=== PATIENT | female | born 1940 | race Caucasian/White ===

== ENCOUNTER 2023-09-10 13:58 | Outpatient (RCR) | payer OTHER, BC, SELFPAY ==
[2023-08-26 13:50] VITALS: BP 176/66
[2023-08-26] MEDS: INJECTAFER 265 MG IV (14:01)
[2023-08-26 14:50] VITALS: BP 149/64
[2023-08-26 15:21] VITALS: BP 166/59
[2023-09-10 14:07] VITALS: BP 145/58
[2023-09-10] MEDS: INJECTAFER 265 MG IV (14:37)
[2023-09-10 15:27] VITALS: BP 159/63
== END 2023-09-11 08:43 | disposition home or self-care (01) ==
LOC: OID 13:58
PROVIDERS: ATTENDING PHYSICIAN Specialist; FAMILY PHYSICIAN Family Medicine
DX: N18.32 Chronic kidney disease, stage 3b (principal); I48.20 Chronic atrial fibrillation, unspecified; Q60.0 Renal agenesis, unilateral; Z79.01 Long term (current) use of anticoagulants
CPT/HCPCS: 96365; J1439

== ENCOUNTER 2024-08-13 03:50 | Inpatient (IN) | payer OTHER, SELFPAY ==
[2024-08-12 23:02] VITALS: BMI 42.1
[2024-08-12 23:09] VITALS: BP 224/140
[2024-08-12 23:18] VITALS: BP 193/99
--- NOTE | 2024-08-12 23:30 | ED.GENMED ---
History of Present Illness
General
Chief Complaint: Breathing Problem
Source: patient and family (Daughter)
Time Seen by Provider: 08/12/24 23:22
History of Present Illness
History of Present Illness:
83-year-old female presents the emergency room complaining of shortness of breath. Patient began feeling unwell this morning with some 'cold-like symptoms'. She felt a tickle in her throat and began having mild cough. Symptoms continued through
the day to the point where she now feels quite short of breath. She feels much more short of breath when she lies flat. Patient has a history of atrial fibrillation but denies any previous history of heart failure. She did not check her
temperature today but did not feel she had a fever. She denies any chest pain. Patient is prescribed Xarelto for A-fib and is compliant with it.
Phy Exam
Physical Exam
Physical Exam:
General: Awake, Alert, Oriented X3. Moderate increased work of breathing
Vitals: Hypertensive
Head: Atraumatic
Eyes: Pupils equal, EOMI
Throat: Airway intact, no exudates
Neck: Trachea midline
Lungs: Crackles bilateral bases
Heart: Regular rate, no murmurs
Abd: Soft, Nontender, No pulsatile mass
Neuro: Nonfocal
Skin: Warm, dry, no rash
Extremities: pulses equal b/l, 2+ edema
Scores
Heart Failure Risk
Heart Failure Risk Score: Yes
History of Stroke or TIA: No
History of intubation for respiratory distress: No
Heart rate on ED arrival >/= 110: Yes
SaO2 <90% on arrival on room air: No
HR >/=110 during 3min walk test (or too ill to perform test): Yes
ECG has acute ischemic changes: No
Urea >/=12mmol/L (BUN 33.6mg/dL): No
Serum CO2>/=35mmol/L: No
Troponin I or T elevated to ND Level (0.4mg/dL): No
NT-proBNP >/=5,000ng/L (5,000pg/ml): No
HF Risk Score: 2
Admission Status: MEDIUM RISK 9.2% Consider observation or discharge to home with homecare & f/u visit to PCP/Air Sampler, or SNF for treatment
Course
Orders/Labs/Results
Orders:
Orders
08/12/24 23:13
EKG- Treatment ONCE
08/12/24 23:29
CR Chest Portable - 1 View Urgent
Comment:
Reason For Exam: sob
Reason Study Needs to be Portable: Unable to Transport
08/12/24 23:43
COVID-19 Antigen Urgent
Source: Nasal Swab
Complete Blood Count/With Diff Urgent
Comprehensive Metabolic Panel Urgent
NT-proBNP Urgent
Comment: ADDED
Troponin I Urgent
Influenza A+B Rapid Molecular Urgent
SUSAN Source: Nasal Swab
Specimen Description:
08/12/24 23:49
Furosemide [Lasix] 40 mg IV NOW STA
08/12/24 23:50
Nitroglycerin Ointment [Nitro-Bid] 1 inch TOPICAL NOW STA
Nitroglycerin Sublingual [Nitrostat (Sublingual)] 0.4 mg SL NOW STA
08/13/24 00:57
Add On- LAB Urgent
Tests Added?: pro-bnp
08/13/24 03:31
Admit/Transfer Patient As Directed
Co-Sign Provider:
Level of Care: Inpatient admission
Assign to:: Telemetry
Physician / Group: Hussain
Diagnosis: Acute on Chronic HF
Reason for Telemetry: Acute Heart Failure
Date to Stop Telemetry: 08/16/24
Time to Stop Telemetry: 11:00
Reason for Hospitalization: Acute on Chronic HF
Expected length of stay greater than two midnights?: Yes
ELOS- Estimated Length of Stay in days: 2
I certify the patient meets the requirements for IP care: Yes
PRN Pain Medication Management As Directed
May give lesser potent ordered pain med per pt: Yes
preference::
Protocol:: Medication orders for pain may be administered in a
manner that supports deferring to patient preference
when the pt is:
- Requesting an ordered lesser potent pain medication.
Least to most potent pain medications are defined
as: acetaminophen < NSAID < tramadol < opioids
(morphine, oxycodone, hydromorphone).
- Requesting a lesser dose of the same medication IF
ORDERED.
- Requesting a less intrusive route of administration
if both routes are prescribed by the provider (PO <
IV).
08/13/24 03:32
Code Status As Directed
Resuscitation Status: Full Code
08/13/24 04:13
Acetaminophen [Tylenol] 650 mg PO Q4HPRN PRN
Albuterol Nebs [Ventolin Nebules] 2.5 mg INH R Q4HPRN PRN
08/13/24 04:13
Echo 2D MMode Doppler [Echo 2D MMode Color/Doppler] Routine
Reason for Study: CHF
Activity As Directed
Activity Level: Ambulate
With Assistance
EKG with chest pain [ECG as needed] As Directed
ECG as needed for:: Chest Pain
I/O [Intake/ Output] As Directed
Frequency: Per unit guidelines
Records Request [Obtain Records] As Directed
Dates of Information to be Released: Most Recent
Type of Information Requested: Last Office Visit H&P
ECG/Cardiology Results
Obtain Records from: Dr. Ed Smallwood - Cardiology
Vital Signs As Directed
Frequency: Per unit guidelines
Weight As Directed
Frequency: Daily
08/13/24 05:42
Basic Metabolic Panel IN AM
Cardiovascular Evaluation IN AM
Glycohemoglobin (HgbA1c) Routine
Iron Routine
TSH Reflex To Free T4 Routine
Total Iron Binding Routine
Troponin I Q6H
08/13/24 05:43
Complete Blood Count/No Diff IN AM
08/13/24 Breakfast
Regular
At Your Request: Full Participation
Does patient need a safe tray?: No
Fluid Restriction: 1440 mL/day (48 oz)
08/13/24 08:00
Allopurinol [Zyloprim] 100 mg PO DAILY
Doxazosin Mesylate [Cardura] 4 mg PO DAILY
Famotidine [Pepcid] 10 mg PO BID
Furosemide [Lasix] 20 mg IV BID AT 0800,1600
Metoprolol Xl [Toprol Xl] 25 mg PO DAILY
08/13/24 10:18
Troponin I Q6H
08/13/24 18:00
Rivaroxaban [Xarelto] 20 mg PO QPM
08/16/24 11:00
DC Protocol for Telemetry ONCE
Abnormal Lab Results
08/12/24
23:43
RBC 3.02 L 10^6/uL
(4.20-5.40)
Hgb 9.5 L g/dL
(12.0-16.0)
Hct 28.9 L %
(37.0-47.0)
MCH 31.5 H pg
(27.0-31.0)
MCHC 32.9 L g/dL
(33.0-37.0)
MPV 12.9 H fL
(7.4-10.4)
Chloride 109 H mmol/L
(98-107)
BUN 24 H mg/dl
(7-17)
Creatinine 1.1 H mg/dL
(0.6-1.0)
Glucose 127 H mg/dl
(70-99)
08/12/24 23:43
08/12/24 23:43
Vital Signs
Initial and Last Documented VS:
Initial Vital Signs
Temp Pulse Resp BP Pulse Ox
98.6 F 90 24 224/140 92
08/12/24 23:09 08/12/24 23:09 08/12/24 23:09 08/12/24 23:09 08/12/24 23:09
Last Documented Vital Signs
Temp Pulse Resp BP Pulse Ox
98.4 F 77 18 134/68 95
08/16/24 11:39 08/16/24 11:39 08/16/24 11:39 08/16/24 11:39 08/16/24 12:00
MDM/Problems Addressed
Differential Diagnosis Includes:
CHF, pneumonia, viral illness, symptomatic anemia
MDM/Problems Addressed:
Patient presents with shortness of breath. Clinically she appears to be heart failure. She was quite hypertensive on arrival and did receive a sublingual nitroglycerin as well as Nitropaste in addition to Lasix for diuresis. Patient blood
pressure improved significantly and continue to trend down. Symptomatically she began feeling better. She was noted to have a moderate anemia likely microcytic on CBC. White count and platelet count are normal. Chest x-ray shows pulmonary edema.
Patient will require hospitalization for further diuresis and workup.
*Radiology
Radiology exam reviewed: preliminary read by ED provider (Pulmonary edema)
*Pulse Oximetry
Patient hypoxic: yes
*EKG
Interpreted by ED Provider?: Yes
Interpretation: abnormal
Heart Rate: 92
Rate: normal
Rhythm: a-fib
[place]: normal axis
QRS Pattern: right bundle branch block
Ischemia: non-specific ST changes
*Cdl Truck Driver Interpretation
Rate: normal
Interpretation: normal
Rhythm: sinus
*Critical Care Note
Total Time (30-74mins, 75-104mins- exclusive of procedures): 41min
comment:
Critical care statement: A total of 41 minutes of critical care time was provided for this patient. This includes management of unstable vital signs, evaluation of the patient at bedside, reviewing the patient's pertinent medical records, discussion
with consultants, review of old EKGs and review of pertinent medical records. This time with separate from time utilized to perform the aforementioned documented procedures
ED Attending Note
-
Portions of this chart may have been created with voice recognition software.� Occasional wrong word or��sound alike� substitutions may have occurred due to the inherent limitations of voice recognition software.
Discharge Plan
Departure
Patient Disposition: Admit
Date of Disposition: 08/13/24
Time of Disposition: :23
Admit to: Telemetry
Presentation/result/management discussed w/ accepting MD/DO: Hospitalist
Condition: Fair
Discharge Problem:
CHF (congestive heart failure), Hypertensive emergency
Interventions
Interventions:
*Risk Screen - Suicide Last Done: 08/12/24 23:09
*General Assessment Last Done: 08/13/24 00:11
*Neglect/Abuse Screening Last Done: 08/12/24 23:09
*ED COVID-19 Vaccine History Last Done: 08/13/24 00:11
*Nursing Disposition Last Done: 08/13/24 07:47
ED- Cardiac Assessment Last Done: 08/13/24 00:27
ED- Neurological Assessment Last Done: 08/13/24 00:27
ED- Pulmonary Assessment Last Done: 08/13/24 00:27
Discharge Date and Time
Discharge Date/Time: 08/13/24 07:48
[2024-08-13] VITALS (33 sets, daily range): BP systolic 136–189; BP diastolic 52–105
[2024-08-13 00:05] LABS: % Basophils 1.4 % (0-2); % Eosinophils 3.3 % (0-6); % Immature Granulocytes 0.3 % (0-0.5); % Lymphocytes 20.5 % (20.5-51.1); % Monocytes 8.3 % (1.7-9.3); % Neutrophils 66.2 % (42.2-75.2); ALT (SGPT) 15 U/L (0-35); AST (SGOT) 17 U/L (14-36); Absolute Basophils 0.1 10^3/uL (0-0.2); Absolute Eosinophils 0.2 10^3/uL (0-0.7); Absolute Lymphocytes 1.4 10^3/uL (1.2-3.4); Absolute Monocytes 0.6 10^3/uL (0.1-0.6); Absolute Neutrophils 4.4 10^3/uL (1.4-6.5); Albumin 3.8 g/dl (3.5-5.0); Alkaline Phosphatase 69 U/L (38-126); Blood Urea Nitrogen 24 mg/dl (7-17); Calcium 9.2 mg/dl (8.4-10.2); Carbon Dioxide 25 mmol/L (22-30); Chloride 109 mmol/L (98-107); Glucose 127 mg/dl (70-99); Hematocrit 28.9 % (37.0-47.0); Hemoglobin 9.5 g/dL (12.0-16.0); Mean Corp Hgb Conc. 32.9 g/dL (33.0-37.0); Mean Corpuscular Hgb 31.5 pg (27.0-31.0); Mean Corpuscular Volume 95.7 fL (81.0-99.0); Mean Platelet Volume 12.9 fL (7.4-10.4); Nucleated Red Blood Cells % 0 %; Platelet Count 138 10^3/uL (130-400); Potassium 4.2 mmol/L (3.5-5.1); Red Blood Cell Count 3.02 10^6/uL (4.20-5.40); Red Cell Dist. Width 13.8 % (11.5-14.5); Sodium 141 mmol/L (135-145); Total Bilirubin 0.5 mg/dl (0.2-1.3); Total Protein 6.7 g/dl (6.3-8.2); White Blood Cell Count 6.6 10^3/uL (4.8-10.8); eGFR 50.48
[2024-08-13] MEDS: LASIX 40 MG IV ×2 (00:14→16:01)
[2024-08-13 00:15] LABS: COVID-19 Antigen Negative (Negative)
[2024-08-13 00:17] LABS: Troponin I < 0.012 ng/ml
[2024-08-13] MEDS: NITROSTAT (SUBLINGUAL) 0.4 MG SL (00:17)
[2024-08-13] MEDS: NITRO-BID 1 INCH TOPICAL (00:18)
[2024-08-13 01:38] LABS: NT-proBNP 1870 pg/ml
--- NOTE | 2024-08-13 03:26 | DOWNTIME ---
There was a [employer] Client Slope Hoist Operator Downtime on 08/13/2024 from 0200 to 08/14/2023 at 0318 . Downtime documentation of patient's care, including medication administrations, has been reconciled in the electronic record per guidelines. Refer to the
patient's paper chart under the miscellaneous tab to see printed paper medication records and downtime forms.
--- NOTE | 2024-08-13 03:45 | HPS.HSE ---
Family Physician
-
Family Physician: Amy Britton
Chief Complaint
-
SOB, Cough
History of Present Illness
Patient is an 83y F with PMH significant for A-Fib, CHF and history of malignancies who presents to ED complaining of cough, hoarseness and SOB. Patient states that she was feeling very well until this AM when she noted sore throat, hoarseness
and hacking cough / 'tickle' in the throat. Her symptoms seemed to progress throughout the AM. She stood up from her seat around 10AM and became acutely SOB. Her symptoms persisted throughout they day and she presented to the ED for further
evaluation and treatment.
Patient states that she has appreciated some increase in LE swelling over the past month or so.
She notes that her Lasix dose was increased (added a PRN dose) by her Tearoom Host/Hostess - however, she admits that she has not taken many of the 'as needed' dosing.
No chest pain or palpitations. No fevers / chills. No known sick contacts.
Patient is followed by Dr. Ed Smallwood at [facility].
Medical History
Past Medical History
Past Medical History: Reports Other
Additional Past Medical History:
Paroxysmal Atrial Fibrillation
CHF - Unknown Type
Hypertension
Renal Cell Cancer s/p Nephrectomy
Breast Cancer s/p Lumpectomy, Chemo and XRT
Gout
Past Surgical History: Reports Other
Additional Past Surgical History:
Left Lumpectomy
Left Nephrectomy
T&A
Ovarian Cystectomy
Social History
Tobacco: Former Smoker (Quit smoking about 60 years ago. Minimal use.)
Alcohol: None
Drug: None
Family History
Family History: Other (Father: DM)
Allergies / Home Medications
Allergies reflects when Allergies were last updated in [facility] [facility].
Home Medications with original date entered in [employer] [facility]
Allergy/Medication List:
Allergies
Allergy/AdvReac Type Severity Reaction Status Date / Time
No Known Allergies Allergy Verified 08/12/24 23:11
Home Medications
allopurinol 100 mg tablet 100 mg PO DAILY 08/26/23
doxazosin 4 mg tablet,extended release 24 hr 4 mg PO DAILY 08/26/23
furosemide 20 mg tablet 20 mg PO DAILY PRN swelling 08/26/23
metoprolol succinate 25 mg capsule sprinkle, ext. release 24 hr 25 mg PO DAILY 08/26/23
rivaroxaban 20 mg tablet (Xarelto) 20 mg PO QPM 08/26/23
famotidine 10 mg tablet 10 mg PO BID 08/13/24
Review of Systems
-
History Source: Patient
A 12 point ROS was completed and negative except as noted: Yes
Constitutional: Denies Fever, Fatigue or Chills
EENT: Reports Sore Throat
Respiratory: Reports Cough and Trouble Breathing
Cardiac: Denies Chest Pain or Palpitations
Abdomen/GI: Reports Nausea; Denies Abdominal Pain, Vomiting or Diarrhea
: Denies Dysuria, Frequency or Flank Pain
Musculoskeletal: Reports Edema; Denies Joint Pain
Neurological: Denies Dizzy or Headache
Psych: Denies Depression or Anxiety
Physical Exam
Vital Signs
Vital Signs
Temp Pulse Resp BP Pulse Ox
98.6 F 79 20 165/67 95
08/12/24 23:09 08/13/24 03:00 08/13/24 03:00 08/13/24 03:00 08/13/24 03:00
Physical Exam
General: Other (83y F in no acute distress.)
HEENT: Other (Erythematous posterior oropharynx. Thick neck. )
Respiratory: Clear; No Wheezes, Rales or Rhonchi
Cardiac: S1/S2 and Irregular Rhythm; No Murmur
GI: Soft, Non Tender, Non Distended and Normal Bowel Sounds
Musculoskeletal: No Clubbing, No Cyanosis and Other (1-2+ pitting edema b/l LEs.)
Neuro: AO x 3
Laboratory Results
-
08/12/24 23:43
08/12/24 23:43
Laboratory Results
Total Bilirubin 0.5 mg/dl (0.2-1.3) 08/12/24 23:43
AST 17 U/L (14-36) 08/12/24 23:43
ALT 15 U/L (0-35) 08/12/24 23:43
Alkaline Phosphatase 69 U/L (38-126) 08/12/24 23:43
Troponin I < 0.012 ng/ml 08/12/24:43
Impression/Plan
-
A/P: Patient is an 83y F with PMH significant for A-Fib and CHF who presents to ED complaining of SOB and cough.
Acute on Chronic HF - Unknown Type
- Admit for further evaluation and treatment.
- Recent increase in LE edema, marked elevation in BP, CXR with evidence of pulm edema, etc.
- Brisk diuresis in the ED after IV Lasix - continue BID and follow weights, I/Os, etc.
- Send for recent records from outpatient Tearoom Host/Hostess.
- Update Echo (not done recently per patient).
- Follow for clinical improvement.
Bronchitis / Pharyngitis
- Cough potentially related to CHF; however, acute onset / hoarseness / sore throat / etc seems more c/w infectious process.
- Likely viral syndrome.
- COVID / flu negative in the ED.
- Follow fever curve and monitor for any changes in symptoms.
- Supportive care.
Paroxysmal Atrial Fibrillation
- In A-Fib with controlled rates at present.
- Continue metoprolol.
- Continue Xarelto for stroke risk reduction.
Normocytic Anemia
- Unknown etiology / acuity.
- Check iron studies.
- Follow for changes during stay.
CKD III
History of Renal Cell Cancer s/p Nephrectomy
- Stable renal function. Followed by Dr. Berg as an outpatient.
- Follow for changes with diuresis.
Uncontrolled Hypertension
- BP significantly elevated on initial presentation - likely combination of stress and hypervolemia / CHF.
- Continue metoprolol and doxazosin.
- Follow for improvement with diuresis.
- IV hydralazine PRN very high BPs.
Morbid Obesity due to excess calories
- Affects all aspects of care.
- Encourage healthy diet and increased exercise with goal of weight loss.
DVT Prophylaxis: On Xarelto
Code Status: Full
[2024-08-13 06:10] LABS: Hematocrit 28.1 % (37.0-47.0); Hemoglobin 9.1 g/dL (12.0-16.0); Mean Corp Hgb Conc. 32.4 g/dL (33.0-37.0); Mean Corpuscular Volume 95.6 fL (81.0-99.0); Mean Platelet Volume 12.8 fL (7.4-10.4); Platelet Count 142 10^3/uL (130-400); Red Blood Cell Count 2.94 10^6/uL (4.20-5.40); Red Cell Dist. Width 13.6 % (11.5-14.5); White Blood Cell Count 6.5 10^3/uL (4.8-10.8)
[2024-08-13 06:37] LABS: Iron 61 ug/dl (37-170)
[2024-08-13 06:40] LABS: Blood Urea Nitrogen 22 mg/dl (7-17); Calcium 9.1 mg/dl (8.4-10.2); Carbon Dioxide 28 mmol/L (22-30); Chloride 105 mmol/L (98-107); Estimated Creatinine Clearance 45 ml/min; Glucose 128 mg/dl (70-99); HDL Cholesterol 43 mg/dl; LDL Cholesterol, Calculated 128 mg/dl; Potassium 4.3 mmol/L (3.5-5.1); Sodium 143 mmol/L (135-145); Total Cholesterol 184 mg/dl (50-199); Triglyceride 66 mg/dl (10-149); Very Low Density Lipoprotein 13 mg/dl (0-30); eGFR 45.48
[2024-08-13 06:48] LABS: Percent Saturation 17 % (20-50); Total Iron Binding Capacity 349 ug/dl (265-497)
[2024-08-13 07:04] LABS: TSH Reflex To Free T4 1.68 uIU/ml (0.47-4.68)
[2024-08-13] MEDS: TOPROL XL 25 MG PO (08:56)
[2024-08-13] MEDS: LASIX 20 MG IV (08:56)
[2024-08-13] MEDS: ZYLOPRIM 100 MG PO (08:57)
[2024-08-13] MEDS: CARDURA 4 MG PO (08:57)
[2024-08-13] MEDS: PEPCID 10 MG PO ×2 (08:57→20:18)
--- NOTE | 2024-08-13 09:04 | CON.CAR ---
Addendum entered and electronically signed by Kenton Jules MD 08/13/24 14:59:
I saw and examined the patient.
The Master Craftsman's note was reviewed and I agree with the note.
Comment: Briefly, 83-year-old woman with past medical history of atrial fibrillation on Xarelto and anemia who presents with worsening dyspnea and was admitted for acute decompensated heart failure.
Appears mildly volume overloaded on exam and was requiring supplemental O2 via nasal cannula at the time of my evaluation this morning. proBNP elevated at 1870 and chest x-ray suggestive of pulmonary edema. Transthoracic echocardiogram with
preserved LV function but suggestive of elevated filling pressures in keeping with acute decompensated heart failure.
Agree with continuing IV Lasix twice daily in an attempt to improve her respiratory status
Wean oxygen as able
Follow renal function electrolytes closely given history of CKD
Daily standing weights
Suspect we can transition to oral diuretics in the next 24 to 48 hours
Would recommend daily maintenance diuretic on discharge, previously taking Lasix only as needed
Rest per Radha Kidd
Addendum entered and electronically signed by Radha Kidd PA-C 08/13/24 12:22:
Records obtained and reviewed from [facility] cardiology. Last office visit from 10/16/2023. Patient with chronic atrial fibrillation with right bundle branch block. She has history of rectal bleeding from hemorrhoids. Last echocardiogram she also has
history of pulmonary nodules by chest CT 09/20/2023. Last echocardiogram dated 02/01/2023 with preserved EF, no regional wall motion abnormalities, mild MAC, mild MR, mild TR, aortic sclerosis, mild AI.
Original Note:
Consultation
Consultation Request
Date/Time Consultation Performed: 08/13/24
Requesting Provider: Dr. Nixon
Performing Provider: Radha Kidd PA-C for Dr. Jules
Reason for Consultation: CHF
Medical History
-
Chief Complaint: SOB
History of Present Illness:
Patient is an 83 yo F with PMH of chronic atrial fibrillation on xarelto, iron def anemia, gout, CKD stage 3B who presented to [facility] due to SOB. She reports she has history of intermittent LE edema and has been prescribed lasix 20mg po PRN. She does
not state she uses lasix regularly. Reports yesterday morning started with a 'tickle in my throat' and thought she was getting sick. She states it then progressed to her feeling as though she can't clear her throat with lying flat, and then when she
sat up she really felt as though she could not breathe. No CP, palpitations. She presented to ER for evaluation. proBNP 1869 and CXR with evidence of mild CHF. Cardiology consulted for evaluation. She is followed by [facility] cardiology as OP.
PMH:
Chronic atrial fibrillation
Chronic xarelto therapy
CKD stage 3B
Solitary R kidney, history of L nephrectomy for RCC
History of breast cancer s/p L lumpectomy, chemo, radiation
Iron def anemia
Gout
GERD
Past Medical History
Past Medical History: Other (in HPI)
Social History
Tobacco: Non-Smoker
Alcohol: None
Living: Alone
Employment: Retired
Family History
Family History: Reviewed & Not Pertinent
Allergies / Home Medications
Allergy/AdvReac Type Severity Reaction Status Date / Time
No Known Allergies Allergy Verified 08/12/24 23:11
�Medication �Instructions �Recorded �Confirmed �Type
allopurinol 100 mg tablet 100 mg PO DAILY 08/26/23 08/13/24 History
doxazosin 4 mg tablet,extended 4 mg PO DAILY 08/26/23 08/13/24 History
release 24 hr
furosemide 20 mg tablet 20 mg PO DAILY PRN swelling 08/26/23 08/13/24 History
metoprolol succinate 25 mg capsule 25 mg PO DAILY 08/26/23 08/13/24 History
sprinkle, ext. release 24 hr
rivaroxaban 20 mg tablet (Xarelto) 20 mg PO QPM 08/26/23 08/13/24 History
famotidine 10 mg tablet 10 mg PO BID 08/13/24 08/13/24 History
Review of Systems
-
History Source: Patient
All other systems: Negative unless noted
Physical Exam
Vital Signs
Temp Pulse Resp BP Pulse Ox
98.4 F 91 18 184/78 93
08/13/24 07:27 08/13/24 08:57 08/13/24 07:27 08/13/24 08:57 08/13/24 07:27
Lab Results
08/13/24 05:43
08/13/24 05:42
Troponin I 0.030 ng/ml D 08/13/24 05:42
Pxz-S-Ceuuggkpvyp Pept 1870 pg/ml 08/12/24 23:43
Physical Exam
General: No Apparent Distress, Comfortable and Other (on supp O2. obese)
HEENT: Normocephalic, Anicteric and Moist Mucous Membranes
Respiratory: Clear and Non Labored Respirations
Cardiac: S1/S2 and Irregular Rhythm
GI: Soft, Non Tender, Non Distended and Normal Bowel Sounds
Musculoskeletal: No Clubbing, No Cyanosis and Edema (Trace of B/L LE)
Skin: Warm and Dry
Neuro: AO x 3
Impression / Plan
-
Primary Project Management Consultant: Dr. Smallwood, but patient states she wants to transition to DCA
Assessment:
Presentation with SOB
Acute CHF, unknown type
Chronic atrial fibrillation
Chronic xarelto therapy
RBBB
CKD stage 3B
Solitary R kidney, history of L nephrectomy for RCC
History of breast cancer s/p L lumpectomy, chemo, radiation
Iron def anemia
Gout
GERD
Obesity
Plan:
- Patient presents to [facility] for evaluation of shortness of breath. proBNP 1870 and chest x-ray with evidence of mild CHF resulting in cardiology consult.
- Continue IV Lasix diuresis. Was on p.o. Lasix 20 mg daily as needed for lower extremity swelling prior to admission. We discussed will likely need daily dosing upon discharge
- Creatinine stable at 1.2. Has CKD stage IIIb, followed by nephrology
- CHF education
- Wean supplemental oxygen as able
- Check echo
- I have requested records from primary librarian helper for review
- initial trop negative, repeat 0.03. no CP. trend to peak
- LDL 128. Would recommend statin therapy
- TSH within normal limits
- Remains in rate controlled atrial fibrillation by review of EKG. Continue outpatient Toprol and Xarelto. Based on current creatinine clearance, would consider decreasing Xarelto dose to 15 mg QPM
- Hemoglobin 9.1. At recent outpatient nephrology appointment, they had discussed starting iron supplementation
- BPs elevated since arrival. currently on cardura 4mg daily and toprol 25mg daily, consider uptitration of antihypertensive regimen. by nephrology last note, listed as being on losartan 100mg daily but not listed on med rec here, will clarify with
patient.
Data Reviewed
-
EKG: Tracing Personally Visualized and interpreted
Radiology: Report Reviewed by me
Labs: Labs Reviewed by me
Old Records: Requested and Reviewed
[2024-08-13 10:21] LABS: Glycohemoglobin (HgbA1c) 6.1 % (4.0-5.6)
[2024-08-13 11:10] LABS: Troponin I < 0.012 ng/ml
--- NOTE | 2024-08-13 11:52 | W.PN.HOSP.TC ---
Today's Communication/Plan
-
iv lasix
statin
HTN control
Assessment / Plan
Assessment / Plan
Physical Exam
General: Other (83y F in no acute distress.)
HEENT: Other (Erythematous posterior oropharynx. Thick neck. )
Respiratory: Clear; No Wheezes, Rales or Rhonchi
Cardiac: S1/S2 and Irregular Rhythm; No Murmur
GI: Soft, Non Tender, Non Distended and Normal Bowel Sounds
Musculoskeletal: No Clubbing, No Cyanosis and Other (1-2+ pitting edema b/l LEs.)
Neuro: AO x 3
A/P: Patient is an 83y F with PMH significant for A-Fib and CHF who presents to ED complaining of SOB and cough.
Acute on Chronic HFpEF
-ECHO: Mild concentric left ventricular hypertrophy. Stage II diastolic dysfunction suggestive of abnormal relaxation and increased filling pressures.
-was on prn lasix outpatient
-Cont IV Lasix
-Cards consulted
Bronchitis / Pharyngitis
- Cough potentially related to CHF; however, acute onset / hoarseness / sore throat / etc seems more c/w infectious process.
- Likely viral syndrome.
- COVID / flu negative in the ED.
- Follow fever curve and monitor for any changes in symptoms.
- Supportive care.
Paroxysmal Atrial Fibrillation
- In A-Fib with controlled rates at present.
- Continue metoprolol.
- Continue Xarelto for stroke risk reduction.
Normocytic Anemia
Iron deficiency anemia
- Unknown etiology / acuity.
- Will plan for iron as per wet chemistry analyst outpatient although was in discussions
- Follow for changes during stay.
CKD III
History of Renal Cell Cancer s/p Nephrectomy
- Stable renal function. Followed by Dr. Berg as an outpatient.
- Follow for changes with diuresis.
Uncontrolled Hypertension
- BP significantly elevated on initial presentation - likely combination of stress and hypervolemia / CHF.
- Continue metoprolol and doxazosin.
- Follow for improvement with diuresis.
- IV hydralazine PRN very high BPs.
� Add regimen as needed
Hyperlipidemia
� Initiate statin
Morbid Obesity due to excess calories
- Affects all aspects of care.
- Encourage healthy diet and increased exercise with goal of weight loss.
DVT Prophylaxis: On Xarelto
Code Status: Full
Anticipated Discharge: 24 - 48 hours
Subjective/Interval History
-
Date of Service: August 13, 2024
Feels somewhat better than yesterday
Objective Data
-
Labs:
Laboratory Results
08/12/24 08/13/24 08/13/24
23:43 05:42 05:43
WBC 6.6 6.5
Hgb 9.5 L 9.1 L
Hct 28.9 L 28.1 L
Plt Count 138 142
Sodium 141 143
Potassium 4.2 4.3
Chloride 109 H 105
Carbon Dioxide 25 28
BUN 24 H 22 H
Creatinine 1.1 H 1.2 H
Glucose 127 H 128 H
Calcium 9.2 9.1
Total Bilirubin 0.5
AST 17
ALT 15
Alkaline Phosphatase 69
Vital Signs:
Vital Signs
Temp Pulse Resp BP Pulse Ox
98.8 F 86 17 165/60 98
08/13/24 11:17 08/13/24 11:17 08/13/24 11:17 08/13/24 11:17 08/13/24 11:17
I&O
08/12/24 08/13/24 08/14/24
06:59 06:59 06:59
Output Total 1999 / 1999 1000 / 1000
Balance -2000 / -2000 -1000 / -1000
Review of Systems
-
History Source: Patient
All other systems: Not reviewed unless documented
Data Reviewed
-
Diagnostic Radiology: Report Reviewed by me
Medical Tests (Nuc Med, Echo etc): Report Reviewed by me
Labs: Labs Reviewed by me
[2024-08-13] MEDS: XARELTO 20 MG PO (17:14)
[2024-08-14] VITALS (7 sets, daily range): BP systolic 100–159; BP diastolic 50–68; BMI 39.9
[2024-08-14] MEDS: ZYLOPRIM 100 MG PO (07:46)
[2024-08-14] MEDS: CARDURA 4 MG PO (07:46)
[2024-08-14] MEDS: PEPCID 10 MG PO ×2 (07:47→21:06)
[2024-08-14] MEDS: TOPROL XL 25 MG PO (07:47)
[2024-08-14] MEDS: LASIX 40 MG IV (07:47)
[2024-08-14 09:31] LABS: Hematocrit 29.4 % (37.0-47.0); Hemoglobin 9.6 g/dL (12.0-16.0); Mean Corp Hgb Conc. 32.7 g/dL (33.0-37.0); Mean Corpuscular Hgb 31.1 pg (27.0-31.0); Mean Corpuscular Volume 95.1 fL (81.0-99.0); Mean Platelet Volume 12.8 fL (7.4-10.4); Platelet Count 144 10^3/uL (130-400); Red Blood Cell Count 3.09 10^6/uL (4.20-5.40); Red Cell Dist. Width 14.1 % (11.5-14.5); White Blood Cell Count 5.4 10^3/uL (4.8-10.8)
--- NOTE | 2024-08-14 09:37 | CM ---
CM following re: discharge planning.
Reviewed pt's chart, met with pt yesterday and today.
Pt is an 83 year old female, admitted with primary dx of Acute on Chronic HFpEF. PMH includes: A-Fib, CHF and history of malignancies.
Pt reports she lives alone in a manufacturing home, no step to enter, has supportive daughter and she lives across the street and helps as needed. Pt reports she ambulates with [employer], had [facility] in the past. No SNF history. Pt expressed her desire
to return back home at discharge with VN services if recommended.
PT and OT will evaluate the pt to determine a level of care at discharge.
PCP: Amy Britton
Pharmacy: [facility]
D/C plan: home with most likely VN services if indicated.
CM will follow with discharger plan updates as hospitalization progresses
[2024-08-14 09:41] LABS: Blood Urea Nitrogen 35 mg/dl (7-17); Calcium 8.9 mg/dl (8.4-10.2); Carbon Dioxide 29 mmol/L (22-30); Chloride 102 mmol/L (98-107); Estimated Creatinine Clearance 29 ml/min; Glucose 123 mg/dl (70-99); Magnesium 1.9 mg/dl (1.6-2.3); Potassium 4.2 mmol/L (3.5-5.1); Sodium 140 mmol/L (135-145); eGFR 27.96
[2024-08-14] MEDS: STERILE WATER FOR INJECTION 10 ML IV (10:18)
[2024-08-14] MEDS: ZITHROMAX INFUSION 250 IV (10:19)
[2024-08-14] MEDS: ROCEPHIN 1000 MG IV (10:19)
--- NOTE | 2024-08-14 10:23 | PN.CDI ---
CDI
- -
CDI:
Physician Documentation Request
Admit Date: 08/13/24 03:50
Dear Doctor Tricia,
Please review the following and provide your response in the progress notes.
Clinical Indicators:
- Patient admit for acute on chronic HFpEF
- 08/13 PN 'Uncontrolled Hypertension...BP significantly elevated on initial presentation'
- IV Lasix, 1 inch nitro, SL nitro given
Selected Entries
08/12/24
23:09 08/12/24
23:18 08/13/24
00:14
Blood pressure 224/140 193/99 180/91
08/13/24
00:20 08/13/24
00:22 08/13/24
00:50
Blood pressure 189/62 184/78 160/53
- Increasing creatinine
Laboratory Tests
08/12/24 08/13/24 08/14/24
23:43 05:42 08:22
Creatinine 1.1 H 1.2 H 1.8 H
Clarify which, if any of the following, is a more accurate diagnosis reflecting the type and acuity of the documented hypertension:
Essential primary hypertension
Hypertensive Urgency - B/P is severely elevated (systolic > or = to 180 or diastolic > or = to 110) but there is no associated organ damage. Symptoms may include: headache, shortness of breath, nosebleeds, severe anxiety. Treatment usually consists
of addition to or adjusting of oral medications and does not generally necessitate hospitalization.
Hypertensive Emergency - B/P is severely elevated (systolic > or = to 180 or diastolic > or = to 110) but can occur at lower levels especially in patients who did not previously have high B/P. There is usually associated organ damage. Symptoms may
include: memory loss, LOC, CVA, CO, angina, renal failure, pulmonary edema. Generally requires more aggressive treatment and a hospitalization.
Hypertensive Crisis - an acute elevation in B/P that can lead to organ damage. Broad term that is further differentiated to include urgency or emergency based on presence of organ damage.
Other (please specify)
Use of terms such as suspected, likely, concern for, or probable (associated with a specific diagnosis that is being evaluated, monitored, or treated as if it exists) are acceptable and can be coded in the inpatient setting, when documented at the
time of discharge.
Thank you,
Juan Garrett RN
CDI Specialist
Please use your independent medical judgment in providing your response.
--- NOTE | 2024-08-14 10:25 | W.PN.CARDCBS ---
Addendum entered and electronically signed by mEory Snyder MD 08/14/24 18:31:
83-year-old woman with permanent atrial fibrillation admitted with PNA and possible element of acute HFpEF
PMH: Permanent A-fib, right bundle branch block, CKD 3B, solitary right kidney following nephrectomy for renal cell carcinoma on the left, breast cancer with left lumpectomy, chemo and radiation, gout, GERD, obesity
Current meds: Allopurinol 100 mg a day, Cardura 4 mg a day, Pepcid, metoprolol ER 25 mg a day, rivaroxaban 20 mg a day, atorvastatin 40 mg a day, ceftriaxone, Zithromax, furosemide on hold
100/53, pulse 97, resp rate 18 weight is 105.5 kg, if accurate down 111 kgI suspect no intervention will be required., Lungs are relatively clear somewhat diminished in bases, neck veins are okay, no obvious murmurs, abdomen benign, some nonpitting
edema
Hemoglobin 9.6, creatinine 1.8 had been 1.2, BUN 35, troponin is undetectable, proBNP is 1870
Echo 08/14/2024: EF 60-65%, mild LVH, stage II diastolic dysfunction, normal RV, aortic sclerosis, mild TR, pulmonary artery systolic pressure 43
Chest x-ray interstitial pattern, cardiomegaly
Impression:
Suspected pneumonia/bronchitis
Possible acute HFpEF
Permanent atrial fibrillation
CKD 3A/B with DEISY
Solitary right kidney
History of breast cancer with lumpectomy and chemo/radiation
Gout
GERD
Plan:
At present, there is not much evidence of volume overload, and her presentation is probably mostly related to pneumonia/bronchitis etc. and less so to acute HFpEF.
Her echo is reassuring. She had an undetectable troponin and her proBNP was only modestly elevated.
Her creatinine has risen to 1.8. Lasix is on hold. As an outpatient she had been taking furosemide 20 mg as needed only, which she was taking only rarely.
We will continue to hold furosemide and when creatinine returns to normal can use furosemide as needed. Given that she has a solitary kidney with underlying CKD, would have a low threshold for addition of SGLT2 antagonists if no history of UTI and
cost not prohibitive, given that she may also have an element of HFpEF.
We will continue to follow for now.
Original Note:
Today's Communication / Plan
-
Stop IV Lasix
Repeat BMP in am
Continue to follow volume status
Now being treated for pneumonia with IV antibiotics
Impression / Plan
-
Primary Metal Machine Setter: Dr. Smallwood, but patient states she wants to transition to DCA
Assessment:
Presentation 08/12/2024 with SOB
Acute heart failure with preserved ejection fraction, proBNP 1869
Febrile
Pneumonia, started antibiotics 08/14/2024
Chronic atrial fibrillation
Chronic xarelto therapy
RBBB
CKD stage 3B
Solitary R kidney, history of L nephrectomy for RCC
History of breast cancer s/p L lumpectomy, chemo, radiation
Iron def anemia
Gout
GERD
Rectal bleeding secondary to hemorrhoids
Obesity
Echo 08/13/2024: EF 60 to 65%. Mild concentric LVH. Stage II DD. Aortic sclerosis without stenosis. Mild TR with PAP 43 mmHg
Echo 05/04/2022 ([facility]): Preserved EF, no regional wall motion abnormalities, mild MAC, mild MR, mild TR, aortic sclerosis without stenosis, mild AI.
Plan:
- Patient presented 08/12/24 to [facility] for evaluation of shortness of breath. proBNP 1869 and chest x-ray with evidence of mild CHF resulting in cardiology consult.
- Weight down at least 10 pounds if scale correct with IV diuresis with Lasix 40 mg twice a day. Now off oxygen.
- Creatinine increased from 1.2 to 1.8 overnight. Has CKD stage IIIb, followed by nephrology
- Discontinue IV Lasix given increased creat. Check BMP in am. Would likely benefit from low dose daily Lasix at 20 mg as outpatient but timing to be determined pending renal function
- Echo as noted above with preserved ejection fraction, mild valve disease and mildly elevated PAP pressures in setting of acute HF.
- initial trop negative, peaked 0.03 then trended down thereafter. Patient denies CP.
- LDL 128. New to atorvastatin this admission
- TSH within normal limits
- Remains in rate controlled atrial fibrillation by review of EKG. Continue outpatient Toprol and Xarelto. Based on current creatinine clearance 41 mL/min (age 83, female, weight 232, creatinine 1.8), would consider decreasing Xarelto dose to 15
mg QPM if creatinine does not improve
- Hemoglobin 9.6. At recent outpatient nephrology appointment, they had discussed starting iron supplementation
- Blood pressure noted to be elevated early on during admission. Now improved. Continue Cardura 4mg daily and Toprol 25mg daily
- Patient was noted to be febrile within last 24 hours with Tmax 100.9. Concern for pneumonia and placed on IV antibiotics with ceftriaxone and azithromycin 08/14/2024. Continue treatment for pneumonia per primary service
Plan discussed with patient, patient's daughter at bedside hospitalist and nursing.
History of Present Illness 08/13/2024:
Patient is an 83 yo F with PMH of chronic atrial fibrillation on xarelto, iron def anemia, gout, CKD stage 3B who presented to [facility] due to SOB. She reports she has history of intermittent LE edema and has been prescribed lasix 20mg po PRN. She does
not state she uses lasix regularly. Reports yesterday morning started with a 'tickle in my throat' and thought she was getting sick. She states it then progressed to her feeling as though she can't clear her throat with lying flat, and then when she
sat up she really felt as though she could not breathe. No CP, palpitations. She presented to ER for evaluation. proBNP 1870 and CXR with evidence of mild CHF. Cardiology consulted for evaluation. She is followed by [facility] cardiology as OP.
Progress Note - Metal Machine Setter
Subjective
Date of Service: August 14, 2024
Patient seen and examined. Patient resting comfortably in bed. Still feels fatigued and lack of appetite. Feels less short of breath but did spike fever yesterday afternoon. Now concern for pneumonia
Objective
Labs:
08/14/24 08:22
08/14/24 08:22
Labs
Hgb 9.6 g/dL (12.0-16.0) L 08/14/24 08:22
Hct 29.4 % (37.0-47.0) L 08/14/24 08:22
Plt Count 144 10^3/uL (130-400) 08/14/24 08:22
Sodium 140 mmol/L (135-145) 08/14/24 08:22
Potassium 4.2 mmol/L (3.5-5.1) 08/14/24 08:22
BUN 35 mg/dl (7-17) H 08/14/24 08:22
Creatinine 1.8 mg/dL (0.6-1.0) H 08/14/24 08:22
Glucose 123 mg/dl (70-99) H 08/14/24 08:22
Troponins
08/12/24 08/13/24 08/13/24
23:43 05:42 10:18
Troponin I < 0.012 0.030 D < 0.012 D
08/13/24
16:13
Troponin I Cancelled
Vital Signs and I&O:
Vital Signs
Temp Pulse Resp BP Pulse Ox
99.8 F 97 18 131/68 93
08/14/24 07:33 08/14/24 07:47 08/14/24 07:33 08/14/24 07:47 08/14/24 09:29
Vital Signs
Temp Pulse Resp BP Pulse Ox
99.8 F 97 18 131/68 93
08/14/24 07:33 08/14/24 07:47 08/14/24 07:33 08/14/24 07:47 08/14/24 09:29
Intake & Output
08/12/24 08/13/24 08/14/2408/15/25
06:59 06:59 06:59 06:59
Intake Total 1420 / 1420 680 / 680
Output Total 1999 1450 / 1450 350 / 350
Balance -1999 / - / 330 / 330
Physical Exam
Physical Exam
GEN: No distress, awake, Ox3, resting comfortably in bed
HEENT: supple, anicteric, mmm
LUNGS: Diminished breath sounds bilaterally, no wheezes/rales
CV: Irregularly irregular, S1/S2, no murmur, rub or
ABD: soft, BS+, NT/ND
EXT: No edema, clubbing or cyanosis
NEURO: Gross non-focal
SKIN: No rash, warm, dry, pink
--- NOTE | 2024-08-14 12:30 | VNURNOTE ---
Home Health Liaison met with patient and daughter at bedside to discuss VN nurse/therapy, visits, schedule and homebound status. both are agreeable and understand that visits at home will be 2-3 x per week to assess and teach medical management.
[facility]2 [facility] after discharge from . Patient denies owning a scale at home. Daughter will purchase one.
[facility]
--- NOTE | 2024-08-14 13:28 | W.PN.HOSP.TC ---
Today's Communication/Plan
-
Hold diuresis
Initiate antibiotics
Follow-up cultures including blood and sputum
Assessment / Plan
Assessment / Plan
Physical Exam
General: Other (83y F in no acute distress.)
HEENT: Other (Erythematous posterior oropharynx. Thick neck. )
Respiratory: Clear; No Wheezes, Rales or Rhonchi
Cardiac: S1/S2 and Irregular Rhythm; No Murmur
GI: Soft, Non Tender, Non Distended and Normal Bowel Sounds
Musculoskeletal: No Clubbing, No Cyanosis and Other (1-2+ pitting edema b/l LEs.)
Neuro: AO x 3
A/P: Patient is an 83y F with PMH significant for A-Fib and CHF who presents to ED complaining of SOB and cough.
Acute on Chronic HFpEF
-ECHO: Mild concentric left ventricular hypertrophy. Stage II diastolic dysfunction suggestive of abnormal relaxation and increased filling pressures.
-was on prn lasix outpatient
- Hold IV Lasix, rising creatinine
-Cards consulted
Sepsis
?Pneumonia
-with productive sputum
-initiate abx
-f/u imaging
-F/u Cultures
-IVF PRN
- Incentive spirometer, Acapella
DEISY
� Most likely prerenal secondary to overdiuresis
� Hold diuresis
� Monitor BMP
Paroxysmal Atrial Fibrillation
- In A-Fib with controlled rates at present.
- Continue metoprolol.
- Continue Xarelto for stroke risk reduction.
Normocytic Anemia
Iron deficiency anemia
- Unknown etiology / acuity.
- Will plan for iron as per welt butter hand outpatient although was in discussions
- Follow for changes during stay.
CKD III
History of Renal Cell Cancer s/p Nephrectomy
- Stable renal function. Followed by Dr. Berg as an outpatient.
- Follow for changes with diuresis.
Uncontrolled Hypertension
- BP significantly elevated on initial presentation - likely combination of stress and hypervolemia / CHF.
- Continue metoprolol and doxazosin.
- Follow for improvement with diuresis.
- IV hydralazine PRN very high BPs.
� Add regimen as needed
Hyperlipidemia
� Initiate statin
Morbid Obesity due to excess calories
- Affects all aspects of care.
- Encourage healthy diet and increased exercise with goal of weight loss.
DVT Prophylaxis: On Xarelto
Code Status: Full
Anticipated Discharge: 24 - 48 hours
Subjective/Interval History
-
Date of Service: August 14, 2024
Spiked after yesterday, with productive green sputum
Objective Data
-
Labs:
Laboratory Results
08/14/24
08:22
WBC 5.4
Hgb 9.6 L
Hct 29.4 L
Plt Count 144
Sodium 140
Potassium 4.2
Chloride 102
Carbon Dioxide 29
BUN 35 H
Creatinine 1.8 H
Glucose 123 H
Calcium 8.9
Vital Signs:
Vital Signs
Temp Pulse Resp BP Pulse Ox
99.6 F 97 18 100/53 95
08/14/24 11:05 08/14/24 11:05 08/14/24 11:05 08/14/24 11:05 08/14/24 11:05
I&O
08/13/24 08/14/24 08/15/24
06:59 06:59 06:59
Intake Total 1420 / 1420 680 / 680
Output Total 1999 1450 / 1450 350 / 350
Balance -1999 / - / 30 330 / 330
Review of Systems
-
History Source: Patient
All other systems: Not reviewed unless documented
Data Reviewed
-
Diagnostic Radiology: Report Reviewed by me
Medical Tests (Nuc Med, Echo etc): Report Reviewed by me
Labs: Labs Reviewed by me
[2024-08-14] MEDS: XARELTO 20 MG PO (16:54)
[2024-08-15 03:39] VITALS: BP 146/74
[2024-08-15 06:00] VITALS: BMI 39.9
[2024-08-15 06:33] LABS: Hematocrit 28.4 % (37.0-47.0); Hemoglobin 9.3 g/dL (12.0-16.0); Mean Corp Hgb Conc. 32.7 g/dL (33.0-37.0); Mean Corpuscular Hgb 31.1 pg (27.0-31.0); Mean Platelet Volume 12.8 fL (7.4-10.4); Platelet Count 142 10^3/uL (130-400); Red Blood Cell Count 2.99 10^6/uL (4.20-5.40); Red Cell Dist. Width 14.2 % (11.5-14.5); White Blood Cell Count 5.9 10^3/uL (4.8-10.8)
[2024-08-15 06:47] LABS: Blood Urea Nitrogen 44 mg/dl (7-17); Calcium 8.3 mg/dl (8.4-10.2); Carbon Dioxide 25 mmol/L (22-30); Chloride 102 mmol/L (98-107); Estimated Creatinine Clearance 27 ml/min; Glucose 124 mg/dl (70-99); Potassium 4.3 mmol/L (3.5-5.1); Sodium 139 mmol/L (135-145)
[2024-08-15 07:00] VITALS: BP 120/64
[2024-08-15] MEDS: CARDURA 4 MG PO (08:20)
[2024-08-15] MEDS: ZYLOPRIM 100 MG PO (08:20)
[2024-08-15] MEDS: PEPCID 10 MG PO ×2 (08:20→21:10)
[2024-08-15] MEDS: TOPROL XL 25 MG PO (08:21)
[2024-08-15] MEDS: ZITHROMAX INFUSION 250 IV (09:44)
[2024-08-15] MEDS: STERILE WATER FOR INJECTION 10 ML IV (09:45)
[2024-08-15] MEDS: ROCEPHIN 1000 MG IV (09:45)
[2024-08-15 11:09] VITALS: BP 125/53
--- NOTE | 2024-08-15 11:28 | W.PN.HOSP.TC ---
Today's Communication/Plan
-
holding lasix
cont abx
incentive puneet/acapella
f/u cultures
Assessment / Plan
Assessment / Plan
Physical Exam
General: Other (83y F in no acute distress.)
HEENT: Other (Erythematous posterior oropharynx. Thick neck. )
Respiratory: Clear; No Wheezes, Rales or Rhonchi
Cardiac: S1/S2 and Irregular Rhythm; No Murmur
GI: Soft, Non Tender, Non Distended and Normal Bowel Sounds
Musculoskeletal: No Clubbing, No Cyanosis and Other (1-2+ pitting edema b/l LEs.)
Neuro: AO x 3
A/P: Patient is an 83y F with PMH significant for A-Fib and CHF who presents to ED complaining of SOB and cough.
Acute on Chronic HFpEF
-ECHO: Mild concentric left ventricular hypertrophy. Stage II diastolic dysfunction suggestive of abnormal relaxation and increased filling pressures.
-was on prn lasix outpatient
- Hold IV Lasix, rising creatinine level, can use p.o. Lasix as needed as was done outpatient
-Cards consulted
Sepsis
?Tracheobronchitis
-with productive sputum, green now improved
-Cont abx
-F/u Cultures
-IVF PRN
- Incentive spirometer, Acapella
DEISY
� Most likely prerenal secondary to overdiuresis
� Hold diuresis
� Monitor BMP
Paroxysmal Atrial Fibrillation
- In A-Fib with controlled rates at present.
- Continue metoprolol.
- Continue Xarelto for stroke risk reduction.
Normocytic Anemia
Iron deficiency anemia
- Unknown etiology / acuity.
- Will plan for iron as per court of appeals judge outpatient although was in discussions
- Follow for changes during stay.
CKD III
History of Renal Cell Cancer s/p Nephrectomy
- Stable renal function. Followed by Dr. Berg as an outpatient.
- Follow for changes with diuresis.
Uncontrolled Hypertension
- BP significantly elevated on initial presentation - likely combination of stress and hypervolemia / CHF.
- Continue metoprolol and doxazosin.
- Follow for improvement with diuresis.
- IV hydralazine PRN very high BPs.
� Add regimen as needed
Hyperlipidemia
� Initiate statin
Morbid Obesity due to excess calories
- Affects all aspects of care.
- Encourage healthy diet and increased exercise with goal of weight loss.
DVT Prophylaxis: On Xarelto
Code Status: Full
Anticipated Discharge: 24 - 48 hours
Subjective/Interval History
-
Date of Service: August 15, 2024
Productive green sputum now history clear, feels better
Objective Data
-
Labs:
Laboratory Results
08/15/24
05:18
WBC 5.9
Hgb 9.3 L
Hct 28.4 L
Plt Count 142
Sodium 139
Potassium 4.3
Chloride 102
Carbon Dioxide 25
BUN 44 H
Creatinine 1.9 H
Glucose 124 H
Calcium 8.3 L
Vital Signs:
Vital Signs
Temp Pulse Resp BP Pulse Ox
97.9 F 90 18 125/53 91
08/15/24 11:09 08/15/24 11:09 08/15/24 11:09 08/15/24 11:09 08/15/24 11:09
I&O
08/14/24 08/15/24 08/16/24
06:59 06:59 06:59
Intake Total 1420 / 1420 2040 / 2040 240 / 240
Output Total 1450 / 1450 1100 / 1100
Balance -30 / -30 940 / 940 240 / 240
Review of Systems
-
History Source: Patient
All other systems: Not reviewed unless documented
Data Reviewed
-
Diagnostic Radiology: Report Reviewed by me
Medical Tests (Nuc Med, Echo etc): Report Reviewed by me
Labs: Labs Reviewed by me
--- NOTE | 2024-08-15 11:32 | W.PN.CARDCBS ---
Today's Communication / Plan
-
Dose reduced Xarelto for renal function
Would go back to home dosing of oral Lasix which was 20 mg daily as needed
Stable cardiac status, we will sign off, please recall as needed
Impression / Plan
-
Primary Aircraft Worker: Dr. Cl HARRINGTON
Assessment:
Presentation 08/12/2024 with SOB
Acute heart failure with preserved ejection fraction, proBNP 1869
Febrile
Pneumonia, started antibiotics 08/14/2024
Chronic atrial fibrillation
Chronic xarelto therapy
RBBB
CKD stage 3B
Solitary R kidney, history of L nephrectomy for RCC
History of breast cancer s/p L lumpectomy, chemo, radiation
Iron def anemia
Gout
GERD
Rectal bleeding secondary to hemorrhoids
Obesity
Echo 08/13/2024: EF 60 to 65%. Mild concentric LVH. Stage II DD. Aortic sclerosis without stenosis. Mild TR with PAP 43 mmHg
Echo 05/04/2022 ([facility]): Preserved EF, no regional wall motion abnormalities, mild MAC, mild MR, mild TR, aortic sclerosis without stenosis, mild AI.
Plan:
- Patient presented 08/12/[address] [facility] for evaluation of shortness of breath. proBNP 1869 and chest x-ray with evidence of mild CHF resulting in cardiology consult.
- Weight down at least 10 pounds if scale correct with IV diuresis with Lasix 40 mg twice a day. Now off oxygen.
- With rising creatinine lasix was held
- Plan to resume lasix at prior dosing of 20 mg PRN
- Echo as noted above with preserved ejection fraction, mild valve disease and mildly elevated PAP pressures in setting of acute HF.
-Remains in rate controlled atrial fibrillation
-Continue outpatient Toprol
-Dose reduce Xarelto for renal function
-Continue treatment for pneumonia per primary service
History of Present Illness 08/13/2024:
Patient is an 83 yo F with PMH of chronic atrial fibrillation on xarelto, iron def anemia, gout, CKD stage 3B who presented to [facility] due to SOB. She reports she has history of intermittent LE edema and has been prescribed lasix 20mg po PRN. She does
not state she uses lasix regularly. Reports yesterday morning started with a 'tickle in my throat' and thought she was getting sick. She states it then progressed to her feeling as though she can't clear her throat with lying flat, and then when she
sat up she really felt as though she could not breathe. No CP, palpitations. She presented to ER for evaluation. proBNP 1870 and CXR with evidence of mild CHF. Cardiology consulted for evaluation. She is followed by [facility] cardiology as OP.
Progress Note - Aircraft Worker
Subjective
Date of Service: August 15, 2024
No acute overnight events. Tells me her breathing is improved today. She is resting comfortably in bed, no cardiac complaints.
Objective
Labs:
08/15/24 05:18
08/15/24 05:18
Labs
Hgb 9.3 g/dL (12.0-16.0) L 08/15/24 05:18
Hct 28.4 % (37.0-47.0) L 08/15/24 05:18
Plt Count 142 10^3/uL (130-400) 08/15/24 05:18
Sodium 139 mmol/L (135-145) 08/15/24 05:18
Potassium 4.3 mmol/L (3.5-5.1) 08/15/24 05:18
BUN 44 mg/dl (7-17) H 08/15/24 05:18
Creatinine 1.9 mg/dL (0.6-1.0) H 08/15/24 05:18
Glucose 124 mg/dl (70-99) H 08/15/24 05:18
Troponins
08/12/24 08/13/24 08/13/24
23:43 05:42 10:18
Troponin I < 0.012 0.030 D < 0.012 D
08/13/24
16:13
Troponin I Cancelled
Vital Signs and I&O:
Vital Signs
Temp Pulse Resp BP Pulse Ox
97.9 F 90 18 125/53 91
08/15/24 11:09 08/15/24 11:09 08/15/24 11:09 08/15/24 11:09 08/15/24 11:09
Vital Signs
Temp Pulse Resp BP Pulse Ox
97.9 F 90 18 125/53 91
08/15/24 11:09 08/15/24 11:09 08/15/24 11:09 08/15/24 11:09 08/15/24 11:09
Intake & Output
08/13/24 08/14/24 08/15/24 08/16/24
06:59 06:59 06:59 06:59
Intake Total 1420 / 1420 2040 / 2040 240 / 240
Output Total 1999 1450 / 1450 1100 / 1100
Balance -1999 / - / 940 / 940 240 / 240
Physical Exam
Physical Exam
Gen: NAD, AA
HEENT: NC/AT, sclera anicteric
Neck: No JVD
CV: Irregularly irregular, NL s1/s2
Lungs: No increased work of breathing on room air
Abd: S/ND
Ext: No LE edema
Skin: Warm, dry
Neuro: Non-focal
[2024-08-15 15:15] VITALS: BP 143/58
[2024-08-15] MEDS: XARELTO 15 MG PO (16:22)
[2024-08-15 19:12] VITALS: BP 134/56
[2024-08-15 23:36] VITALS: BP 157/76
[2024-08-16 03:59] VITALS: BP 150/68
[2024-08-16 06:00] VITALS: BMI 40.1
[2024-08-16 06:17] LABS: Hemoglobin 9.2 g/dL (12.0-16.0); Mean Corp Hgb Conc. 32.9 g/dL (33.0-37.0); Mean Corpuscular Hgb 31.2 pg (27.0-31.0); Mean Corpuscular Volume 94.9 fL (81.0-99.0); Mean Platelet Volume 12.5 fL (7.4-10.4); Platelet Count 133 10^3/uL (130-400); Red Blood Cell Count 2.95 10^6/uL (4.20-5.40); White Blood Cell Count 4.9 10^3/uL (4.8-10.8)
[2024-08-16 06:41] LABS: Blood Urea Nitrogen 41 mg/dl (7-17); Calcium 8.8 mg/dl (8.4-10.2); Carbon Dioxide 29 mmol/L (22-30); Chloride 104 mmol/L (98-107); Estimated Creatinine Clearance 35 ml/min; Glucose 117 mg/dl (70-99); Potassium 4.6 mmol/L (3.5-5.1); Sodium 141 mmol/L (135-145); eGFR 34.79
[2024-08-16 07:15] VITALS: BP 171/79
[2024-08-16] MEDS: PEPCID 10 MG PO (09:24)
[2024-08-16] MEDS: TOPROL XL 25 MG PO (09:24)
[2024-08-16] MEDS: CARDURA 4 MG PO (09:24)
[2024-08-16] MEDS: ZYLOPRIM 100 MG PO (09:24)
[2024-08-16] MEDS: FLUSH (NSS) 2 FLUSH IV (10:12)
[2024-08-16] MEDS: ZITHROMAX INFUSION 250 IV (10:12)
--- NOTE | 2024-08-16 10:38 | CM ---
Per hospitalist, patient is clear for d/c today. Per chart, [facility] was referred to for services.
Met w/ patient bedside w/ daughter, aware of d/c today. IMM verbally reviewed, copy given to patient, copy on chart
Daughter will transport home
Plan: Home w/ [facility]
--- NOTE | 2024-08-16 10:45 | W.PN.HOSP.TC ---
Addendum entered and electronically signed by Shmuel Clarke MD 08/16/24 15:10:
Hypertensive Urgency
Addendum entered and electronically signed by Shmuel Clarke MD 08/16/24 15:06:
[id number]
7 day course of ceftriaxone with cefdinir
Original Note:
Today's Communication/Plan
-
abx course
cbc and bmp in 1 week
xarelto renally adjusted, adjust as needed outpt
lasix as needed
f/u pcp, nephro, cards outpt
Assessment / Plan
Assessment / Plan
Physical Exam
General: Other (83y F in no acute distress.)
HEENT: Other (Erythematous posterior oropharynx. Thick neck. )
Respiratory: Clear; No Wheezes, Rales or Rhonchi
Cardiac: S1/S2 and Irregular Rhythm; No Murmur
GI: Soft, Non Tender, Non Distended and Normal Bowel Sounds
Musculoskeletal: No Clubbing, No Cyanosis and Other (1-2+ pitting edema b/l LEs.)
Neuro: AO x 3
A/P: Patient is an 83y F with PMH significant for A-Fib and CHF who presents to ED complaining of SOB and cough.
Acute on Chronic HFpEF
-ECHO: Mild concentric left ventricular hypertrophy. Stage II diastolic dysfunction suggestive of abnormal relaxation and increased filling pressures.
-was on prn lasix outpatient
- Hold IV Lasix, rising creatinine level, can use p.o. Lasix as needed as was done outpatient
-Cards consulted, follow-up outpatient
Sepsis
Tracheobronchitis
-with productive sputum, green now improved
-Cont abx, discharged on azithromycin to complete 5-day course, cefdinir to complete 2-day course of ceftriaxone and cefdinir
-F/u Cultures, no growth to date
-IVF PRN
- Incentive spirometer, Acapella
DEISY
� Most likely prerenal secondary to overdiuresis
� Hold diuresis
� Monitor BMP in 1 week
Paroxysmal Atrial Fibrillation
- In A-Fib with controlled rates at present.
- Continue metoprolol.
- Continue Xarelto for stroke risk reduction. Renally dose Xarelto, adjust as needed outpatient
Normocytic Anemia
Iron deficiency anemia
- Unknown etiology / acuity.
- Will plan for iron as per region manager outpatient although was in discussions
- Follow for changes during stay.
CKD III
History of Renal Cell Cancer s/p Nephrectomy
- Stable renal function. Followed by Dr. Berg as an outpatient.
- Follow for changes with diuresis.
Uncontrolled Hypertension
- BP significantly elevated on initial presentation - likely combination of stress and hypervolemia / CHF.
- Continue metoprolol and doxazosin.
- Follow for improvement with diuresis.
- IV hydralazine PRN very high BPs.
� Add regimen as needed
Hyperlipidemia
� Initiate statin
Morbid Obesity due to excess calories
- Affects all aspects of care.
- Encourage healthy diet and increased exercise with goal of weight loss.
DVT Prophylaxis: On Xarelto
Code Status: Full
More than 30 minutes spent in discharge including
Final examination of the patient
Summarizing hospital stay
Instructions for continuing care to all relevant caregivers
Preparation of discharge records, prescriptions, and referral forms
Total time spent (in minutes): 37
Anticipated Discharge: Today
Subjective/Interval History
-
Date of Service: August 16, 2024
Feeling better, no acute events overnight
Objective Data
-
Labs:
Laboratory Results
08/16/24
05:30
WBC 4.9
Hgb 9.2 L
Hct 28.0 L
Plt Count 133
Sodium 141
Potassium 4.6
Chloride 104
Carbon Dioxide 29
BUN 41 H
Creatinine 1.5 H
Glucose 117 H
Calcium 8.8
Vital Signs:
Vital Signs
Temp Pulse Resp BP Pulse Ox
98.2 F 95 18 141/66 95
08/16/24 07:15 08/16/24 09:24 08/16/24 07:15 08/16/24 09:24 08/16/24 07:15
I&O
08/15/24 08/16/24 08/17/24
06:59 06:59 06:59
Intake Total 2040 / 2040 1450 / 1450
Output Total 1100 / 1100
Balance 940 / 940 1450 / 1450
Review of Systems
-
History Source: Patient
All other systems: Not reviewed unless documented
Data Reviewed
-
Diagnostic Radiology: Report Reviewed by me
Medical Tests (Nuc Med, Echo etc): Report Reviewed by me
Labs: Labs Reviewed by me
--- NOTE | 2024-08-16 10:48 | W.DS.TRANS ---
DC Summary - [employer] Consultant
-
Discharge Instructions:
Discharge Diagnosis/Procedures Acute on Chronic HFpEF
Sepsis
Tracheobronchitis
DEISY
Diet Low Fat,Low Cholesterol,Restrict fluids to 48 oz
Blood Work cbc and bmp in 3-5 days with pcp
Instructions: *PCP/Other [employer] [facility] Heart Failure Instructions
Stand-Alone Forms:
Changes to Home Medications: Yes
Discharge Medications:
DC Medications w/original date entered in [employer]
allopurinol 100 mg tablet 100 mg PO DAILY Gout 08/26/23
doxazosin 4 mg tablet,extended release 24 hr 4 mg PO DAILY Blood Pressure 08/26/23
furosemide 20 mg tablet 20 mg PO DAILY PRN swelling 08/26/23
metoprolol succinate 25 mg capsule sprinkle, ext. release 24 hr 25 mg PO DAILY Heart Disease/Condition 08/26/23
famotidine 10 mg tablet 10 mg PO BID Gastrointestinal Issue 08/13/24
atorvastatin 40 mg tablet 40 mg PO QPM 30 days #30 tabs 08/16/24
azithromycin 500 mg tablet 500 mg PO DAILY 3 days #3 tabs 08/16/24
cefdinir 300 mg capsule 300 mg PO Q12H 5 days #10 caps 08/16/24
rivaroxaban 15 mg tablet (Xarelto) 15 mg PO QPM 30 days #30 tabs 08/16/24
Home Medication Changes
atorvastatin 40 mg tablet 40 mg PO QPM 30 days #30 tabs 08/16/24
azithromycin 500 mg tablet 500 mg PO DAILY 3 days #3 tabs 08/16/24
cefdinir 300 mg capsule 300 mg PO Q12H 5 days #10 caps 08/16/24
rivaroxaban 15 mg tablet (Xarelto) 15 mg PO QPM 30 days #30 tabs 08/16/24
Pending Results: No
[2024-08-16 11:39] VITALS: BP 134/68
[2024-08-16] MEDS: ROCEPHIN IV (14:17)
[2024-08-16] MEDS: STERILE WATER FOR INJECTION IV (14:17)
--- NOTE | 2024-08-17 12:45 | W.HF.CON ---
Heart Failure
- LV Function
Left ventricular function study result: LV Ejection fraction >/= 50%
Ejection Fraction Percentage: 60-65
- ARNI
Patient already on ARNI: No
Heart Failure ARNI Not Indicated: LV Ejection Fraction >/= 40%
- ACEI/ARB
Patient already on ACEI/ARB: No
Heart Failure ACEI/ARB Not Indicated: LV Ejection Fraction > 40%
- Beta Raheem
Patient already on Evidence Based Beta Raheem: Yes
- Mineralocorticord Receptor Antagonist
Patient already on MRA: No
Heart Failure MRA Not Indicated: LV Ejection Fraction > 40%
- SGLT-2 Inhibitor
Patient already on SGLT-2 Inhibitor: No
Heart Failure SGLT-2 Inhibitor Contraindication: Patient Refusal
- Afib Anticoagulation
Patient already on Anticoagulation for Afib: Yes
- NYHA CHF Classification
NYHA CHF Classification Level: Class III - Symptoms w/ min exertion, interferes w/ nml daily activity
- ACC/AHA Stage
ACC/AHA Stage: Stage C: Symptomatic Heart Failure
== END 2024-08-16 14:27 | disposition home health service (06) | DRG 871 ==
LOC: 4 EAST ACU 03:50
PROVIDERS: ADMITTING PHYSICIAN Hospitalist; ATTENDING PHYSICIAN Internal Medicine; EMERGENCY PHYSICIAN Emergency Medicine; FAMILY PHYSICIAN Family Medicine; OTHER PHYSICIAN Internal Medicine Cardiovascular Disease
DX: A41.9 Sepsis, unspecified organism (principal); I50.33 Acute on chronic diastolic (congestive) heart failure; I13.0 Hypertensive heart and chronic kidney disease with heart failure and stage 1 through stage 4 chronic kidney disease, or unspecified chronic kidney disease; N17.9 Acute kidney failure, unspecified; Z68.41 Body mass index [BMI] 40.0-44.9, adult; I48.20 Chronic atrial fibrillation, unspecified; N18.32 Chronic kidney disease, stage 3b; J40 Bronchitis, not specified as acute or chronic; N15.9 Renal tubulo-interstitial disease, unspecified; I48.0 Paroxysmal atrial fibrillation; Z85.528 Personal history of other malignant neoplasm of kidney; Z92.21 Personal history of antineoplastic chemotherapy; Z92.3 Personal history of irradiation; Z85.3 Personal history of malignant neoplasm of breast; M10.9 Gout, unspecified; Z87.891 Personal history of nicotine dependence; Z83.3 Family history of diabetes mellitus; D64.9 Anemia, unspecified; E66.01 Morbid (severe) obesity due to excess calories; I16.0 Hypertensive urgency; E78.5 Hyperlipidemia, unspecified; I45.10 Unspecified right bundle-branch block; K21.9 Gastro-esophageal reflux disease without esophagitis; T50.2X5A Adverse effect of carbonic-anhydrase inhibitors, benzothiadiazides and other diuretics, initial encounter; Z79.01 Long term (current) use of anticoagulants; Z79.899 Other long term (current) drug therapy; Z90.5 Acquired absence of kidney; Z11.52 Encounter for screening for COVID-19
CPT/HCPCS: 71045; 71046; 80048; 80053; 80061; 83036; 83540; 83550; 83735; 83880; 84443; 84484; 85025; 85027; 87040; 87070; 87205; 87502; 87811; 93005; 93306; 96374; 99285

== ENCOUNTER 2025-04-08 15:15 | Outpatient (RCR) | payer OTHER, SELFPAY ==
[2025-03-25 15:52] VITALS: BP 152/50
[2025-03-25] MEDS: RETACRIT 20000 UNITS SC (16:00)
[2025-04-08] MEDS: RETACRIT 20000 UNITS SC (15:35)
[2025-04-08 15:48] VITALS: BP 176/49
== END 2025-04-09 08:34 | disposition home or self-care (01) ==
LOC: OID 15:15
PROVIDERS: ATTENDING PHYSICIAN Specialist; FAMILY PHYSICIAN Family Medicine
DX: N18.32 Chronic kidney disease, stage 3b (principal); D63.1 Anemia in chronic kidney disease; T45.4X5A Adverse effect of iron and its compounds, initial encounter; Y93.89 Activity, other specified
CPT/HCPCS: 96372; Q5106